=== PATIENT | female | born 1945 | race Caucasian/White ===

== ENCOUNTER 2016-11-03 13:14 | Day surgery (SDC) | payer OTHER, MEDICARE ==
[2016-11-03] MEDS ORDERED: LIDOCAINE 1% 300 MG/30 ML SDV ONE ×2 (13:18→14:24)
[2016-11-03] MEDS ORDERED: ALBUTEROL 3 ML DEYVIAL ONE ×2 (13:18→13:49)
[2016-11-03] MEDS ORDERED: MIDAZOLAM 2 MG/2 ML VIAL ONE (13:18)
[2016-11-03] MEDS ORDERED: fentaNYL 100 MCG/2 ML INJ ONE (13:19)
[2016-11-03] MEDS ORDERED: LIDOCAINE HCL 4% TOPICAL SOLN 50ML ONE (13:19)
[2016-11-03] MEDS ORDERED: LIDOCAINE 2% JELLY 5 ML TUBE ONE (13:19)
--- NOTE | 2016-11-03 13:47 | PDHPUP ---
History & Physical Update H&P update statement: This history and physical update is based on an assessment of the patient which was completed after admission or registration (within 24 hours), but prior to the surgery/procedure. H&P update: H&P reviewed & patient examined, no change in patient's condition since H&P completed
--- NOTE | 2016-11-03 13:47 | PDPROPOC ---
Sedation Plan of Care Sedation Plan of Care: vital signs stable, mental status noted, patient educated of risks, benefits, alternatives, patient can tolerate sedation ASA Classification: ASA 2 Mallampati Score: Class 2
[2016-11-03 14:05] VITALS: PULSE 84
[2016-11-03] MEDS ORDERED: fentaNYL 100 MCG/2 ML INJ IVP ONE (14:34)
[2016-11-03] MEDS ORDERED: MIDAZOLAM 2 MG/2 ML VIAL IVP ONE (14:35)
[2016-11-03 15:55] LABS: BODY FLUID CELL COUNT OTHER BODY FLUID
[2016-11-03 18:35] VITALS: TEMP 98.2
[2016-11-03 18:37] VITALS: BP 120/80; RESP 24; O2SAT 94
--- NOTE | 2016-11-04 02:00 | GPN ---
[f rep st] PROCEDURE NOTE DATE OF PROCEDURE: 11/03/2016 PROCEDURE: Bronchoalveolar lavage. INDICATION: Pneumonia in a stem cell transplant patient. CONSENT: Informed consent was obtained from the patient prior to the administration of anesthesia. The risks and benefits of the procedure were explained in detail, and the patient agreed to proceed . CONSCIOUS SEDATION: This was achieved using a total of 3 mg IV Versed and 100 mcg of IV fentanyl. Patient tolerated these well without complications. DESCRIPTION OF PROCEDURE: After the application of topical lidocaine, a bronchoscope was passed thr ough the mouth and passed normal-appearing vocal cords. The main trachea was erythematous but there were no significant secretions. The main sergio was sharp. Attention was taken to the right upper lobe, where the bulk of infiltrate was seen on recent CT scan . Three aliquots of 40 cc of normal saline were instilled with a total of about 60 cc return of hany ar fluid with occasional mucous plugs. There was no bleeding. There were no masses. The remainder of the lungs were surveyed but there were no abnormalities found. The patient tolerated the proced ure well without complication. /[id number]/MODL
[2016-11-04 17:41] LABS: RESPPCR RESULT SEE COMMENTS
[2016-11-04 21:25] LABS: CMVRU RESULT Negative (Negative)
[2016-11-05 15:27] LABS: MISCELLANEOUS TEST See Comments
== END 2016-11-03 18:51 | disposition home or self-care (01) ==
LOC: FSGY 13:14
PROVIDERS: ATTEND Internal Medicine Critical Care Medicine
PROC: 0B9C8ZX Drainage of Right Upper Lung Lobe, Via Natural or Artificial Opening Endoscopic, Diagnostic (ICD-10-PCS; principal; 2016-11-03 14:00)
DX: J18.9 Pneumonia, unspecified organism (principal)
CPT/HCPCS: 87496-90; J0171; J2250; J3010

== ENCOUNTER → 2017-06-10 | Outpatient (CLI) | payer OTHER, MEDICARE | LOC: FIMAGING 14:50 | PROVIDERS: ATTEND Nurse Practitioner | DX: R22.42 Localized swelling, mass and lump, left lower limb (principal) ==

== ENCOUNTER → 2018-01-05 | Outpatient (CLI) | payer OTHER, MEDICARE | LOC: FIMAGING 12:25 | PROVIDERS: ATTEND Internal Medicine Hematology & Oncology | DX: J98.4 Other disorders of lung (principal); R06.02 Shortness of breath; R05 Cough ==